=== PATIENT | female | born 1955 | race Two or more races ===

== ENCOUNTER 2016-07-09 13:58 | Inpatient (IN) | payer OTHER ==
[~2016-07-09] VITALS: Ht 160 cm; Wt 79.4 kg
[2016-07-09] MEDS ORDERED: IV NS 0.9% 1,000 ML IV ONE ×2 (14:45→15:45)
[2016-07-09 14:56] LABS: BASOPHILS % (AUTO) 0.5 % (0.0-2.0); EOSINOPHILS # (AUTO) 0.4 /CMM (0.0-0.7); EOSINOPHILS % (AUTO) 3.8 % (0.0-6.0); HEMATOCRIT 40 % (33-45); HEMOGLOBIN 13.2 g/dL (11.5-14.8); LYMPHOCYTES # (AUTO) 1.5 /CMM (0.8-4.8); LYMPHOCYTES % (AUTO) 15.8 % (20.0-44.0); MEAN CORPUSCULAR HEMOGLOBIN 29 PG (26.0-33.0); MEAN CORPUSCULAR HGB CONC 33 g/dl (31.0-36.0); MEAN CORPUSCULAR VOLUME 88 fL (82-100); MONOCYTES # (AUTO) 0.9 /CMM (0.1-1.30); MONOCYTES % (AUTO) 9.1 % (2.0-12.0); NEUTROPHILS # (AUTO) 6.7 /CMM (1.8-8.9); NEUTROPHILS % (AUTO) 70.8 % (43.0-81.0); PLATELET COUNT (AUTO) 205 /CMM (150-450); RDW COEFFICIENT OF VARIATION 12.3 (11.5-15.0); RED BLOOD CELL COUNT(AUTO) 4.57 MIL/uL (4.0-5.2); WHITE BLOOD COUNT (AUTO) 9.5 K/uL (4.3-11.0)
[2016-07-09] MEDS ORDERED: methylPREDNISolone SOD SUCC 125 MG/2ML VIAL ONE (14:58)
[2016-07-09] MEDS ORDERED: CEFTRIAXONE 1GM BAG (ER ONLY) 50 ML IV ONE (14:58)
[2016-07-09] MEDS ORDERED: IV SET PRIMARY 1 EA INFUS.SET MC ONE (14:59)
[2016-07-09] MEDS ORDERED: IV NS 0.9% 2,000 ML ONE (14:59)
[2016-07-09] MEDS ORDERED: ALBUTEROL FS 2.5 MG/3 ML VIAL.NEB CONTNEB ONE (15:00)
[2016-07-09] MEDS ORDERED: methylPREDNISolone SOD SUCC 125 MG/2ML VIAL IV ONE (15:00)
[2016-07-09] MEDS ORDERED: IPRATROPIUM NEB FS 0.5 MG/2.5 ML AMPUL.NEB NEB ONE (15:00)
[2016-07-09] MEDS ORDERED: CEFTRIAXONE 1 G in IV D5W 50 ML IV ONE (15:00)
[2016-07-09] MEDS ORDERED: AZITHROMYCIN 500 MG in IV D5W 250 ML IV ONE (15:00)
[2016-07-09 15:11] LABS: CALCIUM, SERUM 9.5 mg/dL (8.5-10.1); CREATININE 0.8 mg/dL (0.6-1.3); POTASSIUM 3.5 mmol/L (3.5-5.1)
[2016-07-09 15:17] LABS: ALBUMIN 3.2 g/dL (3.4-5.0); BILIRUBIN,DIRECT 0.1 mg/dL (0.0-0.2); BILIRUBIN,TOTAL 0.2 mg/dL (0.2-1.0)
[2016-07-09] MEDS ORDERED: ALBUTEROL FS 2.5 MG/3 ML VIAL.NEB ONE (15:18)
[2016-07-09] MEDS ORDERED: IPRATROPIUM NEB FS 0.5 MG/2.5 ML AMPUL.NEB ONE (15:18)
--- NOTE | 2016-07-09 15:27 | NUR ---
BIB SELF, CC: COUGH AND CONGESTION X 1 MONTH, PRODUCTIVE COUGH, PATIENT IS VERBALLY RESPONSIVE, A/O X4, DOES NOT HAVE ANY CHEST PAIN, SEEN BY MD AT BEDSIDE, WILL CONTINUE TO MONTIOR CLOSELY.
--- NOTE | 2016-07-09 15:40 | NUR ---
CALLED NURSING SUP. FOR TELE BED
[2016-07-09] MEDS ORDERED: ALPR0.25 PO (16:34)
[2016-07-09] MEDS ORDERED: ALBU90AE IH (16:34)
[2016-07-09] MEDS ORDERED: FLUT1DIS3 IH (16:34)
[2016-07-09] MEDS ORDERED: LEG CRAMPS PO (16:34)
[2016-07-09] MEDS ORDERED: PRAV20TA4 PO (16:34)
[2016-07-09] MEDS ORDERED: IPRA0.2S9 IH (16:34)
[2016-07-09] MEDS ORDERED: RANI150T8 PO (16:34)
[2016-07-09] MEDS ORDERED: ALBU18HF2 IH (16:34)
[2016-07-09] MEDS ORDERED: LOPE2TAB25 PO (16:34)
[2016-07-09] MEDS ORDERED: TRAZ-144 PO (16:34)
[2016-07-09] MEDS ORDERED: GABA-534 PO (16:34)
[2016-07-09] MEDS ORDERED: ENAL20TA PO (16:34)
[2016-07-09] MEDS ORDERED: CHLO4TAB36 PO (16:34)
[2016-07-09] MEDS ORDERED: OMEP20CA10 PO (16:34)
[2016-07-09] MEDS ORDERED: BUPR-51 PO (16:34)
[2016-07-09] MEDS ORDERED: HYDR-3026 PO (16:34)
[2016-07-09] MEDS ORDERED: FLUT16SP16 NS (16:34)
[2016-07-09] MEDS ORDERED: BUSP10TA3 PO (16:34)
[2016-07-09] MEDS ORDERED: PROC-11 PO (16:34)
[2016-07-09] MEDS ORDERED: DULO60CA45 PO (16:34)
[2016-07-09 16:47] VITALS: BP 106/61
--- NOTE | 2016-07-09 17:00 | NUR ---
GROUT PUMP OPERATOR - Admission pt brought to floor via wheelchair. no s/s of distress. aox4, homeless, cooperative. has productive cough, denies sob on ra. vitals wnl. denies cp, denies any pain. tele monitor reading sr. pt ambulates to bathroom/. skin check completed. iv hl patent and intact. all belongings with pt at bedside. pt oriented to room. Dr. Saavedra contacted for orders.
[2016-07-09] MEDS ORDERED: HYDROCODONE/APAP 5/325MG 1 EACH TABLET PO PRN (18:00)
[2016-07-09] MEDS ORDERED: IPRATROPIUM/ALBUTEROL INHALER IH PRN (18:00)
[2016-07-09] MEDS ORDERED: ACETAMINOPHEN 325 MG TABLET PO PRN (18:00)
[2016-07-09] MEDS ORDERED: IV SET PRIMARY PUMP SET 1 EA INFUS.SET MC ONE (18:13)
[2016-07-09] MEDS: LEVOFLOXACIN (500MG) 500 MG TABLET PO SCH (18:22)
[2016-07-09] MEDS: methylPREDNISolone SOD SUCC 40 MG/ML VIAL IV SCH ×2 (18:22→23:19)
[2016-07-09] MEDS: IV 1/2NS 1000 ML 1,000 ML IV PRN (18:22)
[2016-07-09] MEDS ORDERED: PRAVASTATIN SODIUM 20 MG TABLET PO SCH (18:30)
[2016-07-09] MEDS ORDERED: TRAZODONE 50 MG TABLET PO PRN (18:30)
[2016-07-09] MEDS ORDERED: hydrOXYzine PAMOATE 25 MG CAPSULE PO PRN (18:30)
[2016-07-09] MEDS ORDERED: Chlorpheniramine Maleate 4 MG PO PRN (18:30)
[2016-07-09] MEDS ORDERED: ALPRAZOLAM 0.25 MG TABLET PO PRN (18:30)
--- NOTE | 2016-07-09 18:53 | NUR ---
international trade specialist - closing note all care rendered for pt. will endorse to night nurse for cheo.
[2016-07-09] MEDS ORDERED: ENALAPRIL MALEATE (10 MG) 10 MG TABLET PO SCH (19:00)
[2016-07-09] MEDS ORDERED: LOPERAMIDE HCL (2 MG CAP) 2 MG CAPSULE PO PRN (19:00)
[2016-07-09] MEDS ORDERED: IPRATROPIUM BROMIDE 14 GM INHALER (or 12.9 GM) IH PRN (19:00)
[2016-07-09] MEDS ORDERED: ALBUTEROL SULFATE 8 GM HFA.AER.AD IH PRN (19:00)
[2016-07-09] MEDS ORDERED: IPRATROPIUM NEB FS 0.5 MG/2.5 ML AMPUL.NEB NEB PRN (19:30)
[2016-07-09] MEDS ORDERED: ALBUTEROL FS 2.5 MG/3 ML VIAL.NEB NEB PRN (19:30)
--- NOTE | 2016-07-09 19:55 | NUR ---
INFRASTRUCTURE PROJECT MANAGER INITIAL NOTES: RECEIVED REPORT FROM KAMI KENDRICK. PT ON BED, AWAKE, A/O X4, ON 2L VIA NC, RESPIRATION EVEN AND UNLABORED, PT BEEN COUGHING PERIODICALLY, SHE STATED SHE'S ABLE TO COUGH OUT YELLOWISH COLORED SPUTUM. LEFT AC IV ACCESS PATENT AND FLUSHING WELL, INFUSING WITH 1/2 NS AT 75ML/HR. ON SINUS RHYTHM HR 78. SAFETY PRECAUTIONS FOR FALL INITIATED CALL LIGHT IN REACH, WILL CONTINUE TO MONITOR
[2016-07-09 20:00] VITALS: BP 106/63
[2016-07-09] MEDS: IPRATROPIUM NEB FS 0.5 MG/2.5 ML AMPUL.NEB NEB SCH ×2 (20:52→22:44)
[2016-07-09] MEDS ORDERED: IPRATROPIUM BROMIDE 14 GM INHALER (or 12.9 GM) IH SCH (21:00)
[2016-07-09] MEDS: ATORVASTATIN 10 MG TABLET PO SCH (21:32)
[2016-07-09] MEDS: FAMOTIDINE (20 MG) 20 MG TABLET PO SCH (21:32)
[2016-07-09] MEDS: GABAPENTIN 300 MG CAPSULE PO SCH (21:32)
--- NOTE | 2016-07-09 23:54 | NUR ---
supervisor telephone clerks notes: pt requested for her trazodone, she stated she needs half pill to help her sleep, prn trazodone 0.5tab (25mg) po administered to the pt at this time. educate pt regarding medication side effect, will continue to monitor and reassess
[2016-07-10] VITALS: BP 119/70
[2016-07-10] MEDS: IPRATROPIUM NEB FS 0.5 MG/2.5 ML AMPUL.NEB NEB SCH ×6 (02:30→22:43)
[2016-07-10 04:00] VITALS: BP 102/71
[2016-07-10] MEDS: IV 1/2NS 1000 ML 1,000 ML IV PRN ×2 (05:06→22:10)
[2016-07-10] MEDS: methylPREDNISolone SOD SUCC 40 MG/ML VIAL IV SCH ×4 (05:06→23:49)
--- NOTE | 2016-07-10 06:51 | NUR ---
telecommunication equipment repairer closing notes: pt on bed, awake, remains a/o x3, on 2l via nc, no sob noted. left ac iv access remains patent and flushing well, infusing with 1/2ns at 75ml/hr. on sinus rhythm hr 70. vs remains stable, needs attended. safety precaution for fall remains engaged, call light in reach. will endorse to day rn for cheo.
[2016-07-10 07:21] LABS: CALCIUM, SERUM 9.2 mg/dL (8.5-10.1); CREATININE 0.6 mg/dL (0.6-1.3); POTASSIUM 4.2 mmol/L (3.5-5.1)
[2016-07-10 07:23] LABS: BASOPHILS % (AUTO) 0.1 % (0.0-2.0); HEMATOCRIT 38 % (33-45); HEMOGLOBIN 12.8 g/dL (11.5-14.8); LYMPHOCYTES # (AUTO) 0.9 /CMM (0.8-4.8); LYMPHOCYTES % (AUTO) 12.5 % (20.0-44.0); MEAN CORPUSCULAR HEMOGLOBIN 30 PG (26.0-33.0); MEAN CORPUSCULAR HGB CONC 33 g/dl (31.0-36.0); MEAN CORPUSCULAR VOLUME 89 fL (82-100); MONOCYTES # (AUTO) 0.3 /CMM (0.1-1.30); NEUTROPHILS # (AUTO) 6.1 /CMM (1.8-8.9); NEUTROPHILS % (AUTO) 83.4 % (43.0-81.0); PLATELET COUNT (AUTO) 210 /CMM (150-450); RDW COEFFICIENT OF VARIATION 12.9 (11.5-15.0); RED BLOOD CELL COUNT(AUTO) 4.32 MIL/uL (4.0-5.2); WHITE BLOOD COUNT (AUTO) 7.3 K/uL (4.3-11.0)
[2016-07-10 08:00] VITALS: BP 112/66
--- NOTE | 2016-07-10 08:00 | NUR ---
MS RN RECEIVED ON BED, AWAKE,ALERT, ORIENTED X4,NOT IN ANY FORM OF DISTRESS, RESPIRATIONS EVEN AND UNLABORED,NO SOB NOTED, LUNGS HAVE WHEEZING BILATERALLY, OCCASIONAL COUGHING NOTED,BELÉN PAIN AT THIS TIME,ALL NEEDS ATTENDED.
--- NOTE | 2016-07-10 09:00 | NUR ---
MS KENDRICK BREAKFAST SERVED,DUE MEDS GIVEN,TOLERATED WELL.
[2016-07-10] MEDS: BUPROPION XL 150 MG TAB.ER.24 PO SCH (09:57)
[2016-07-10] MEDS: PANTOPRAZOLE 40 MG TABLET.DR PO SCH (09:57)
[2016-07-10] MEDS: busPIRone 5 MG TABLET PO SCH ×2 (09:57→18:30)
[2016-07-10] MEDS: FAMOTIDINE (20 MG) 20 MG TABLET PO SCH ×2 (09:57→20:43)
[2016-07-10] MEDS: DULOXETINE HCL 30 MG CAPSULE.DR PO SCH (09:58)
[2016-07-10] MEDS: ENALAPRIL MALEATE (10 MG) 10 MG TABLET PO SCH (09:58)
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
[2016-07-10] MEDS: ONDANSETRON HCL/PF 4 MG/2 ML VIAL IV PRN ×2 (15:44→20:43)
[2016-07-10 16:00] VITALS: BP 108/74
[2016-07-10] MEDS ORDERED: IBUPROFEN 400 MG TABLET PO PRN (16:00)
--- NOTE | 2016-07-10 16:00 | NUR ---
M RN ON BED,NO DISTRESS NOTED.
[2016-07-10] MEDS: LEVOFLOXACIN (500MG) 500 MG TABLET PO SCH (18:29)
--- NOTE | 2016-07-10 18:52 | NUR ---
ms rn on bed, no change of condition, will endorse to night warehouse manager, for continuity of care.
--- NOTE | 2016-07-10 19:25 | NUR ---
MS/RN NOTES RECEIVED PT. LYING DOWN IN BED. BREATHING EVEN AND UNLABORED ON ROOM AIR. NO SOB, RESPIRATORY DISTRESS OR COMPLAINTS OF PAIN NOTED AT THIS TIME. PT. WITH LEFT AC 20 GAUGE PERIPHERAL IV PRESENT, PATENT AND INTACT ADMINISTERING TO PT. 1/2 NS @ 75 ML/HR. BED IN LOWEST POSITION, CALL LIGHT WITHIN REACH, WILL CONTINUE TO MONITOR.
[2016-07-10 20:00] VITALS: BP 114/67
[2016-07-10] MEDS ORDERED: IV 1/2NS 1000 ML 1,000 ML IV ONE (20:57)
[2016-07-10] MEDS: ATORVASTATIN 10 MG TABLET PO SCH (22:10)
[2016-07-10] MEDS: GABAPENTIN 300 MG CAPSULE PO SCH (22:10)
[2016-07-11] MEDS: IPRATROPIUM NEB FS 0.5 MG/2.5 ML AMPUL.NEB NEB SCH ×5 (03:55→23:21)
[2016-07-11] MEDS: methylPREDNISolone SOD SUCC 40 MG/ML VIAL IV SCH ×3 (05:56→17:49)
--- NOTE | 2016-07-11 06:32 | NUR ---
MS/RN NOTES PT. LYING IN BED RESTING. BREATHING EVEN AND UNLABORED ON ROOM AIR. NO SOB, RESPIRATORY DISTRESS OR COMPLAINTS OF PAIN NOTED AT THIS TIME. PT. WITH LEFT AC 20 GAUGE PERIPHERAL IV PRESENT, PATENT AND INTACT ADMINISTERING TO PT. 1/2 NS @ 75 ML/HR. PT. TOLERATING IV FLUIDS WELL. NO S/S OF INFILTRATION OR INFECTION NOTED AT IV SITE. ALL PT. NEEDS MET. BED IN LOWEST POSITION, CALL LIGHT WITHIN REACH, WILL ENDORSE TO DAYSHIFT NURSE FOR CONTINUITY OF CARE.
--- NOTE | 2016-07-11 07:35 | NUR ---
SHAREBROKER OPENING NOTES RECEIVED PT. FROM NURSE SITTER NURSE LYING IN BED IN STABLE CONDITION. NO SOB OR SIGNS OF DISTRESS NOTED. NO PAIN EXPRESSED AT THIS TIME. PT ON TELE MONITOR READING AFIB HR:98. IV ON RIGHT AC 18G PATENT AND INTACT. BED IN LOW LOCKED POSITION AND ALARM ON, SIDE RAILS UP X2, CALL LIGHT WITHIN PT.'S REACH. WILL CONTINUE TO MONITOR. Addendum: 07/11/16 at 0753 by OH TEAGUE RN MS RN OPENING NOTES RECEIVED PT. FROM NURSE SITTER NURSE AWAKE AND IN BED IN STABLE CONDITION. NO SOB OR SIGNS OF DISTRESS NOTED. NO PAIN EXPRESSED AT THIS TIME. IV ON LEFT AC 20G PATENT AND INTACT. BED IN LOW LOCKED POSITION AND ALARM ON, SIDE RAILS UP X2, CALL LIGHT WITHIN PT.'S REACH. WILL CONTINUE TO MONITOR.
[2016-07-11 08:00] VITALS: BP 118/63
[2016-07-11] MEDS ORDERED: PRED20TA PO (08:15)
[2016-07-11] MEDS ORDERED: LEVO500T15 PO (08:15)
[2016-07-11] MEDS: DULOXETINE HCL 30 MG CAPSULE.DR PO SCH (08:57)
[2016-07-11] MEDS: BUPROPION XL 150 MG TAB.ER.24 PO SCH (08:58)
[2016-07-11] MEDS: busPIRone 5 MG TABLET PO SCH ×2 (08:59→17:48)
[2016-07-11] MEDS: FAMOTIDINE (20 MG) 20 MG TABLET PO SCH ×2 (09:00→21:28)
[2016-07-11] MEDS: ENALAPRIL MALEATE (10 MG) 10 MG TABLET PO SCH (09:01)
[2016-07-11] MEDS: PANTOPRAZOLE 40 MG TABLET.DR PO SCH (09:01)
[2016-07-11 16:00] VITALS: BP 110/50
[2016-07-11] MEDS ORDERED: IV 1/2NS 1000 ML 1,000 ML IV PRN (16:00)
[2016-07-11] MEDS ORDERED: ONDANSETRON HCL/PF 4 MG/2 ML VIAL IV PRN (16:00)
[2016-07-11] MEDS ORDERED: hydrOXYzine PAMOATE 25 MG CAPSULE PO PRN (16:00)
[2016-07-11] MEDS ORDERED: ALPRAZOLAM 0.25 MG TABLET PO PRN (16:00)
[2016-07-11] MEDS ORDERED: IPRATROPIUM NEB FS 0.5 MG/2.5 ML AMPUL.NEB NEB PRN (16:00)
[2016-07-11] MEDS ORDERED: ACETAMINOPHEN 325 MG TABLET PO PRN (16:00)
[2016-07-11] MEDS ORDERED: LOPERAMIDE HCL (2 MG CAP) 2 MG CAPSULE PO PRN (16:00)
[2016-07-11] MEDS ORDERED: IBUPROFEN 400 MG TABLET PO PRN (16:30)
[2016-07-11] MEDS: LEVOFLOXACIN (500MG) 500 MG TABLET PO SCH (17:48)
--- NOTE | 2016-07-11 18:20 | NUR ---
MS RN CLOSING NOTES PATIENT RESTING IN BED. A/O X4. PT SHOWED NO SIGNS OF DISTRESS/DISCOMFORT. IV ACCESS PATENT AND INTACT. DENIES ANY PAIN AT THIS TIME. KEPT COMFORTABLE, CLEAN, AND DRY. CALL LIGHT WITHIN REACH AND BED IN LOW POSITION WITH SIDE RAILS X2. WILL ENDORSE TO NIGHTSHIFT NURSE FOR RENE
[2016-07-11] MEDS: GABAPENTIN 300 MG CAPSULE PO SCH (21:28)
[2016-07-11] MEDS: ATORVASTATIN 10 MG TABLET PO SCH (21:28)
[2016-07-11] MEDS ORDERED: TRAZODONE 50 MG TABLET PO PRN (22:00)
[2016-07-12] MEDS: methylPREDNISolone SOD SUCC 40 MG/ML VIAL IV SCH ×4 (02:18→17:26)
[2016-07-12] MEDS: IPRATROPIUM NEB FS 0.5 MG/2.5 ML AMPUL.NEB NEB SCH ×6 (02:33→23:09)
--- NOTE | 2016-07-12 07:49 | NUR ---
RN AM NOTES PATIENT RECEIVED IN BED, ASLEEP BUT EASILY AROUSABLE IN STABLE CONDITION. NO SOB, DISTRESS NOTED. WILL CONTINUE TO MONITOR.
--- NOTE | 2016-07-12 07:58 | NUR ---
AWAITING MANUFACTURING PRODUCTION MANAGER CONSULT FOR [facility]PC PLACEMENT
--- NOTE | 2016-07-12 08:17 | NUR ---
RT PATIENT WOKEN UP AND ASKED IF SHE WOULD LIKE HER BREATHING TX. PT ASKED TO LET HER SLEEP."COME BACK LATER IM TRYING TO SLEEP."
[2016-07-12 08:38] VITALS: BP 109/71
[2016-07-12] MEDS: DULOXETINE HCL 30 MG CAPSULE.DR PO SCH (09:30)
[2016-07-12] MEDS: FAMOTIDINE (20 MG) 20 MG TABLET PO SCH ×2 (09:30→21:07)
[2016-07-12] MEDS: BUPROPION XL 150 MG TAB.ER.24 PO SCH (09:30)
[2016-07-12] MEDS: busPIRone 5 MG TABLET PO SCH ×2 (09:30→17:26)
[2016-07-12] MEDS: PANTOPRAZOLE 40 MG TABLET.DR PO SCH (09:30)
[2016-07-12] MEDS: ENALAPRIL MALEATE (10 MG) 10 MG TABLET PO SCH (09:31)
--- NOTE | 2016-07-12 16:10 | NUR ---
PATIENT COMPLAINED THAT RT IS NOT GIVING HER ALBUTEROL. RECONFIRMED WITH RT THAT HE INFORMED PATIENT THAT HR WAS TOO HIGH AT 107, THAT SHE WOULD RECEIVE IT NEXT TIME IF HER HER RATE WAS LOWER. HE SAID THAT PATIENT VERBALIZED UNDERSTANDING. RECONFIRMED INFORMATION WITH PATIENT AND SHE DID SAY THAT HE TOLD HER HER HR WAS TOO HIGH.
[2016-07-12 16:43] VITALS: BP 137/82
[2016-07-12] MEDS: LEVOFLOXACIN (500MG) 500 MG TABLET PO SCH (17:26)
[2016-07-12 19:00] VITALS: BP 131/79
--- NOTE | 2016-07-12 19:02 | NUR ---
RN PM NOTES PATIENT RESTING IN BED. NO SOB, DISTRESS OR PAIN NOTED. EASILY AROUSABLE, NAPPING INTERMITTENTLY. PATIENT STABLE AT THIS TIME. FOLLOW UP WITH CASE MANAGEMENT FOR DISCHARGE TO [place] TOMORROW. WILL ENDORSE TO NEXT SHIFT.
--- NOTE | 2016-07-12 19:05 | NUR ---
RN NOTES RECEIVED PT AWAKE , HOB ELEVATED, WITH O2 INHALATION AT 2LPM VIA NC AND TOLERATED WELL. PT ALERT AND ORIENTEDX4, DENIES ANY PAIN AND DISCOMFORT AT THIS TIME, NO SOB, NOT IN DISTRESS. WITH MILD WHEEZING AND SMALL RONCHI UPON AUSCULTATION. IV ACCESS ON LEFT HAND PATENT AND INTACT. KEPT COMFORTABLE AND ATTENDED. KEPT BED IN THE LOWEST POSITION, LOCKED, SIDE RAILS UP X2 WITH CALL LIGHT WITH IN REACH. WILL CONTINUE TO MONITOR PT.
[2016-07-12] MEDS: ALBUTEROL FS 2.5 MG/3 ML VIAL.NEB NEB PRN (19:39)
--- NOTE | 2016-07-12 19:39 | NUR ---
RN NOTES PT WAS HEARD CONTINOUSLY COUGHING, NON PRODUCTIVE, RT MADE AWARE AND ASK TO GIVE PT VENTOLIN NEB, AND TOLERATED WELL. WILL CONTINUE TO MONITOR PT.
[2016-07-12] MEDS: GABAPENTIN 300 MG CAPSULE PO SCH (21:07)
[2016-07-12] MEDS: ATORVASTATIN 10 MG TABLET PO SCH (21:07)
[2016-07-12 22:00] VITALS: BP 131/79
[2016-07-13] MEDS: methylPREDNISolone SOD SUCC 40 MG/ML VIAL IV SCH ×2 (00:43→06:14)
[2016-07-13] MEDS: IPRATROPIUM NEB FS 0.5 MG/2.5 ML AMPUL.NEB NEB SCH ×5 (01:56→20:25)
--- NOTE | 2016-07-13 07:13 | NUR ---
RN NOTES PT ASLEEP, HOB ELEVATED, EXPIRATORY WHEEZING NOTED. PT COUGH AT TIMES ABLE TO EXPECTORATE THICK WHITE, GREENISH SECRETIONS. VITAL SIGNS STABLE, AFEBRILE. NO SOB, NO SIGNS OF DISTRESS AND DISCOMFORT NOTED. NO EPISODE NAUSEA AND VOMITING NOTED. BREATHING TREATMENT ADMINISTERED NEEDED. WILL F/U WITH CM FOR PLACEMENT. ALL DUE MEDS GIVEN. ALL NEEDS ATTENDED. WILL ENDORSE TO MORNING RN FOR CONTINUITY OF CARE.
--- NOTE | 2016-07-13 07:55 | NUR ---
ms rn received on bed, awake,alert,oriented x4,not in any form of distress, respirations even and unlabored,no sob noted, still w/ occasional coughing, denies pain at this time,all needs attended.
[2016-07-13] MEDS: ALBUTEROL FS 2.5 MG/3 ML VIAL.NEB NEB PRN (08:02)
[2016-07-13 08:25] VITALS: BP 119/77
[2016-07-13] MEDS: ENALAPRIL MALEATE (10 MG) 10 MG TABLET PO SCH (09:00)
[2016-07-13] MEDS: FAMOTIDINE (20 MG) 20 MG TABLET PO SCH ×2 (09:14→21:17)
[2016-07-13] MEDS: PANTOPRAZOLE 40 MG TABLET.DR PO SCH (09:14)
[2016-07-13] MEDS: DULOXETINE HCL 30 MG CAPSULE.DR PO SCH (09:14)
[2016-07-13] MEDS: busPIRone 5 MG TABLET PO SCH ×2 (09:14→17:09)
[2016-07-13] MEDS: BUPROPION XL 150 MG TAB.ER.24 PO SCH (09:15)
[2016-07-13] MEDS: HYDROCODONE/APAP 5/325MG 1 EACH TABLET PO PRN ×2 (09:23→20:09)
--- NOTE | 2016-07-13 10:29 | NUR ---
SARAH met with pt. bedside to discuss discharge plan. SARAH informed pt. that per Dr. Saavedra she has been ready for discharge since Wednesday. SARAH offered pt. resources to [facility]'s intermediate located at [address] [place] [id number] and informed her that she could be there by 1PM and they would be able to assist pt. with intermediate placement. shoe parts caser and other resources. Pt. stated" I am not ready to be discharged as of yet. I continue to have issues with my lungs. I will go to the another hospital and get an assistant district attorney if I'm discharged inappropriately." SARAH informed pt. she cannot discharge her to another hospital but if she refuses intermediate placement then she will be discharged to the streets since pt. is refusing intermediate assistance that is being offered. SARAH left a voicemail message for [facility] Liaison at [facility] [phone] in [place] inquiring if she has a female bed open for pt. SARAH updated [facility] KWAME Lewis who informed SARAH he will call Dr. Saavedra and follow up with SARAH.
[2016-07-13] MEDS: predniSONE 20 MG TABLET PO SCH (12:48)
--- NOTE | 2016-07-13 13:00 | NUR ---
ms lloyd waiting for dr. hagan to clear patient.
--- NOTE | 2016-07-13 15:19 | NUR ---
SARAH met with pt. again to discuss discharge plan. SARAH gave pt. the following resources: Homeless Resource Directory, [facility], list of Drop-in centers and shelters, Information to [facility], [facility]. SARAH contacted [facility] to confirm regarding their phone intake hours for tomorrow at 8AM. SARAH was notified that they do not have any availability at this time and will not have phone intakes tomorrow at 8AM. SARAH called [phone] and was informed that [facility] has a picker tender time at 2PM at the [facility] [place] located at [address] [place] [address]. [place] However, pt. must be there by 2PM for picker tender.
--- NOTE | 2016-07-13 16:00 | NUR ---
MS AROLDO WAS SEEN BY DR. CECILE Bailey/ ORDERS MADE AND CARRIED OUT.
[2016-07-13] MEDS: ALBUTEROL FS 2.5 MG/3 ML VIAL.NEB NEB SCH ×2 (16:14→20:25)
[2016-07-13 16:53] VITALS: BP 137/79
[2016-07-13] MEDS: LEVOFLOXACIN (500MG) 500 MG TABLET PO SCH (17:09)
--- NOTE | 2016-07-13 19:00 | NUR ---
MS RN ON BED, HOPEFULLY GOING HOME IN AM.
--- NOTE | 2016-07-13 19:20 | NUR ---
RN NOTES RECEIVED PT AWAKE , HOB ELEVATED, WITH O2 INHALATION AT 2LPM VIA NC AND TOLERATED WELL. PT ALERT AND [id number] DENIES ANY PAIN AND DISCOMFORT AT THIS TIME, NO SOB, NOT IN DISTRESS. WITH CLEAR LUNG SOUNDS UPON AUSCULTATION. IV ACCESS ON LEFT HAND PATENT AND INTACT. KEPT COMFORTABLE AND ATTENDED. KEPT BED IN THE LOWEST POSITION, LOCKED, SIDE RAILS UP X2 WITH CALL LIGHT WITH IN REACH. WILL CONTINUE TO MONITOR PT.
--- NOTE | 2016-07-13 20:09 | NUR ---
RN NOTES PT COMPLAINS OF PAIN ON HER BACK 10/12, NORCO 5/325 MG TAB GIVEN PO AND TOLERATED WELL.WILL CONTINUE TO MONITOR PT.
[2016-07-13 20:44] VITALS: BP 137/83
[2016-07-13] MEDS: ATORVASTATIN 10 MG TABLET PO SCH (21:17)
[2016-07-13] MEDS: GABAPENTIN 300 MG CAPSULE PO SCH (21:17)
[2016-07-13 22:00] VITALS: BP 137/83
[2016-07-14] MEDS: ALBUTEROL FS 2.5 MG/3 ML VIAL.NEB NEB SCH ×2 (01:41→07:09)
[2016-07-14] MEDS: IPRATROPIUM NEB FS 0.5 MG/2.5 ML AMPUL.NEB NEB SCH ×2 (01:41→07:09)
--- NOTE | 2016-07-14 07:29 | NUR ---
RN NOTES PT ASLEEP, HOB ELEVATED, PT COUGH AT TIMES ABLE TO EXPECTORATE THICK WHITE, GREENISH SECRETIONS. VITAL SIGNS STABLE, AFEBRILE. NO SOB, NO SIGNS OF DISTRESS AND DISCOMFORT NOTED. NO EPISODE NAUSEA AND VOMITING NOTED. BREATHING TREATMENT ADMINISTERED NEEDED. PLS D/C PT BEFORE NOON. ALL DUE MEDS GIVEN. ALL NEEDS ATTENDED. WILL ENDORSE TO MORNING RN FOR CONTINUITY OF CARE.
[2016-07-14 08:00] VITALS: BP 126/79
--- NOTE | 2016-07-14 09:43 | NUR ---
SARAH contacted [facility] and spoke to Luh who informed SW they do have a bed available for pt. and to have pt. come to the [facility] before 2PM. It is a 90 day [facility] placement. [facility] is located at [address] [place] [address]. SARAH met with pt. to inform her that SW found a 90 day [facility]. Pt. declined [facility] placement and informed SARAH her daughter is going to pick her up and take her to another hospital. SARAH encouraged pt. to take the [facility] placement, however pt. continued to decline. SARAH discussed Homeless Patient Waiver form with pt. and have her sign the waiver. Pt. informed SW she wants to look over the form and to come back later.
[2016-07-14] MEDS: FAMOTIDINE (20 MG) 20 MG TABLET PO SCH (10:20)
[2016-07-14] MEDS: busPIRone 5 MG TABLET PO SCH (10:20)
[2016-07-14] MEDS: predniSONE 20 MG TABLET PO SCH (10:21)
[2016-07-14] MEDS: ENALAPRIL MALEATE (10 MG) 10 MG TABLET PO SCH (10:21)
[2016-07-14] MEDS: DULOXETINE HCL 30 MG CAPSULE.DR PO SCH (10:21)
[2016-07-14] MEDS: PANTOPRAZOLE 40 MG TABLET.DR PO SCH (10:22)
[2016-07-14] MEDS: BUPROPION XL 150 MG TAB.ER.24 PO SCH (10:22)
--- NOTE | 2016-07-14 12:00 | NUR ---
SARAH and rn discharge Sarkis met with pt. to discuss her discharge plan. Pt. continued to refuse nursing home placement although there was a nursing home placement offered to her earlier. Pt. was hostile and declined to sign Homeless patient waiver form. jig boring machine set up operator Sarkis was present during this visit to witness pt's refusal for placement / signature of waiver form.
--- NOTE | 2016-07-14 13:09 | NUR ---
REFUSING DISCHARGE PHOTOS.REFUSING TO GO TO SKILLED NURSING AND REFUSING TO SIGN WAIVER.
[2016-07-14 13:55] VITALS: BP 126/79
--- NOTE | 2016-07-14 13:55 | NUR ---
GIVEN DC INSTRUCTIONS ALONG WITH MEDS FROM PHARMACY WHICH SHE BROUGHT IN.HEP LOCK REMOVED.BELONGING SHEET SIGNED.TAKEN WITH ALL PAPERWORK AND BELONGINGS TO LOBBY.ESCORTED BY AROLDO.
== END 2016-07-14 13:25 | disposition home or self-care (01) | DRG 140 ==
LOC: ER 14:00 → TELE 16:38 → MED 07-10 09:06 → TELE 07-10 09:06 → UNDODISIN 07-11 13:22 → MED 07-11 13:35
PROVIDERS: ADMIT Internal Medicine; ATTEND Internal Medicine
DX: J44.1 Chronic obstructive pulmonary disease with (acute) exacerbation (principal); I10 Essential (primary) hypertension; E78.5 Hyperlipidemia, unspecified; M79.7 Fibromyalgia; Z59.0 Homelessness; M19.90 Unspecified osteoarthritis, unspecified site
CPT/HCPCS: 36415; 70210-TC; 71010-TC; 80048-TC; 80076-TC; 85025-TC; 87081-TC; 94799-TC; A4606; J0456; J0696; J2405; J2920; J2930; J3490; J7030; J7060; Z7610